=== PATIENT | male | born 1960 | race Caucasian/White ===

== ENCOUNTER 2017-12-19 15:40 | Emergency (ER) | payer OTHER ==
[~2017-12-19] VITALS: Ht 182.9 cm; Wt 81.6 kg
[2017-12-19] MEDS ORDERED: [UNRECOGNIZED DRUG - OTHER] (16:16)
[2017-12-19] MEDS ORDERED: AMOXICILLIN500 M1 (16:16)
== END 2017-12-19 20:11 | disposition home or self-care (01) ==
LOC: ER 15:40 → EMR PED 16:00 → ER 16:00
DX: J35.01 Chronic tonsillitis (principal)